=== PATIENT | male | born 1990 | race African-American/Black ===

== ENCOUNTER 2017-01-23 08:38 | Inpatient (IN) | payer OTHER ==
[2017-01-23] MEDS ORDERED: RX INFO: IV CONTRAST WAS GIVEN 1 EACH MISC MISCELLANE PRN (09:13)
[2017-01-23 09:37] LABS: Basophils % (A) 0 %; CHCM 31.5; Eosinophils # (A) 0.2 k/uL (0-0.7); Eosinophils % (A) 1 %; HCT 43.2 % (39.0-53.0); HDW 2.32; HGB 13.6 gm/dL (13.0-17.5); Luc % (Auto) 1; Lymphocytes # (A) 2.3 k/uL (1.0-4.8); Lymphocytes % (A) 15 %; MCHC 31.4 g/dL (31.0-37.0); Mean Platelet Volume 6.4; Monocytes % (A) 6 %; Neutrophils # (A) 11.5 k/uL (1.3-7.7); Neutrophils % (A) 76 %; RBC 5.21 m/uL (4.30-5.90); RDW 14.1 % (11.5-15.5); WBC 15.1 k/uL (3.8-10.6); WBC (Perox) 14.72
--- NOTE | 2017-01-23 09:40 | ED ---
General Adult HPI - General Source: patient, RN notes reviewed Mode of arrival: wheelchair Limitations: no limitations <Salvatore Gaston - Last Filed: 01/23/17 11:18> <Apolinar Kruse - Last Filed: 01/23/17 11:23> - General Chief complaint: Back Pain/Injury Stated complaint: rectal pain after lifting heavy object Time Seen by Provider: 01/23/17 09:09 - History of Present Illness Initial comments: This a 26-year-old male presents emergency Department chief complaint rectal pain. Patient states this started over the last 1-2 days. Patient states that he has not had a bowel movement because it is painful. He states that it feels some bulging and a lump in his perirectal region. Patient states never had any like this in the past no history of abscesses or infections. Denies any rectal bleeding. Patient states did notice some pain in that region with lifting but states it was not correlated. Patient denies any bowel bladder incontinence or retention. Denies any abdominal pain no nausea vomiting. (Salvatore Gaston) - Related Data Home Medications Medication Instructions Recorded Confirmed No Known Home Medications [No 01/23/17 01/23/17 Known Home Medications] Allergies Allergy/AdvReac Type Severity Reaction Status Date / Time No Known Allergies Allergy Verified 01/23/17 10:30 Review of Systems ROS Other: All systems not noted in ROS Statement are negative. <Salvatore Gaston - Last Filed: 01/23/17 11:18> ROS Other: All systems not noted in ROS Statement are negative. <Apolinar Kruse - Last Filed: 01/23/17 11:23> ROS Statement: Those systems with pertinent positive or pertinent negative responses have been documented in the HPI. Past Medical History Past Medical History: No Reported History History of Any Multi-Drug Resistant Organisms: None Reported Past Surgical History: No Surgical Hx Reported Past Psychological History: No Psychological Hx Reported Smoking Status: Current every day smoker Past Alcohol Use History: Occasional, Rare Past Drug Use History: Marijuana <Salvatore Gaston - Last Filed: 01/23/17 11:18> General Exam Limitations: no limitations General appearance: alert, in no apparent distress Neck exam: Present: normal inspection. Absent: tenderness, meningismus, lymphadenopathy Respiratory exam: Present: normal lung sounds bilaterally. Absent: respiratory distress, wheezes, rales, rhonchi, stridor Cardiovascular Exam: Present: regular rate, normal rhythm, normal heart sounds. Absent: systolic murmur, diastolic murmur, rubs, gallop, clicks Rectal exam: Present: mass (Appears to be perirectal abscess) <Salvatore Gaston - Last Filed: 01/23/17 11:18> Medical Decision Making - Lab Data Result diagrams: 01/23/17 09:23 01/23/17 09:23 <Salvatore Gaston - Last Filed: 01/23/17 11:18> - Lab Data Result diagrams: 01/23/17 09:23 01/23/17 09:23 <Apolinar Kruse - Last Filed: 01/23/17 11:23> - Medical Decision Making Personal [id number] evaluation patient did discuss findings with him. I did examine the patient does demonstrate a perianal abscess with localized tenderness to palpation. I did discuss the case with Dr. Margarito Kruse who will come in to see the patient. The patient will likely go to the operating room for I&D of the abscess. I did alert the anesthesia department (Apolinar Kruse) - Lab Data Lab Results 01/23/17 01/23/17 Range/Units 09:23 09:23 WBC 15.1 H (3.8-10.6) k/uL RBC 5.21 (4.30-5.90) m/uL Hgb 13.6 (13.0-17.5) gm/dL Hct 43.2 (39.0-53.0) % MCV 83.0 (80.0-100.0) fL MCH 26.0 (25.0-35.0) pg MCHC 31.4 (31.0-37.0) g/dL RDW 14.1 (11.5-15.5) % Plt Count 165 (150-450) k/uL Neutrophils % 76 % Lymphocytes % 15 % Monocytes % 6 % Eosinophils % 1 % Basophils % 0 % Neutrophils # 11.5 H (1.3-7.7) k/uL Lymphocytes # 2.3 (1.0-4.8) k/uL Monocytes # 1.0 (0-1.0) k/uL Eosinophils # 0.2 (0-0.7) k/uL Basophils # 0.0 (0-0.2) k/uL Sodium 141 (137-145) mmol/L Potassium 4.7 (3.5-5.1) mmol/L Chloride 105 (98-107) mmol/L Carbon Dioxide 27 (22-30) mmol/L Anion Gap 9 mmol/L BUN 9 (9-20) mg/dL Creatinine 0.93 (0.66-1.25) mg/dL Est GFR (MDRD) Af Amer >60 (>60 ml/min/1.73 sqM) Est GFR (MDRD) Non-Af >60 (>60 ml/min/1.73 sqM) Glucose 97 (74-99) mg/dL Calcium 9.5 (8.4-10.2) mg/dL Disposition <Salvatore Gaston - Last Filed: 01/23/17 11:18> <Apolinar Kruse - Last Filed: 01/23/17 11:23> Clinical Impression: Perirectal abscess Disposition: ADMITTED IP TO THIS HOSP Condition: Stable Referrals: None,Stated [Primary Care Provider] - 1-2 days
[2017-01-23 09:47] LABS: Anion Gap 9 mmol/L; Blood Urea Nitrogen 9 mg/dL (9-20); Calcium 9.5 mg/dL (8.4-10.2); Carbon Dioxide 27 mmol/L (22-30); Chloride 105 mmol/L (98-107); Glucose 97 mg/dL (74-99); Non-African American GFR(MDRD) >60 (>60 ml/min/1.73 sqM); Potassium 4.7 mmol/L (3.5-5.1); Sodium 141 mmol/L (137-145)
--- NOTE | 2017-01-23 10:43 | CT ---
EXAMINATION TYPE: CT pelvis w con DATE OF EXAM: 01/23/2017 REFERENCE: NONE HISTORY: Perirectal abscess HISTORY: Rectal pain CT DLP: 415.8 mGy Automated exposure control for dose reduction was used. TECHNIQUE: Helical acquisition through the abdomen and pelvis was obtained following the oral ingesti on of without Oral Contrast and following intravenous administration of 100 mL of Omnipaque 300. The data was reformatted in axial, coronal and sagittal projections. FINDINGS: Visualized abdominal viscera are unremarkable. The bladder wall appears slightly thickened. This may be due to lack of distention. Visualized large and small bowel loops are unremarkable. There is a 1.8 x 1.2 x 2.5 cm low attenuating lesion just to the left of the midline in the ischiorec bhargavi space. This likely represents an abscess. There is surrounding inflammation. Pelvic musculature appears normal. IMPRESSION: 2.5 CM PERIRECTAL ABSCESS ON THE LEFT.
[2017-01-23] MEDS ORDERED: HYDROmorphone 1 MG/ML 1 ML SYRINGE IVP STA ×2 (10:47→11:14)
[2017-01-23] MEDS ORDERED: ONDANSETRON 4 MG/2 ML VIAL IVP STA (10:47)
[2017-01-23] MEDS ORDERED: NALOXONE 0.4 MG/ML 1 ML VIAL IV PRN ×2 (11:19→13:35)
[2017-01-23] MEDS ORDERED: PIPERACILLIN-TAZOBACTAM 3.375 GM in DEXTROSE/WATER 1 50ML.BAG IVPB STA (12:00)
--- NOTE | 2017-01-23 12:06 | P.GSHP ---
History of Present Illness H&P Date: 01/23/17 Patient is a 26-year-old black male who presents with a complaint of pain in his perianal area. He states he was lifting a heavy box and had some straining and then developed pain in this region. The patient states that it has been persistent for the past several days. Additionally he states that he has had a fever although he did not take his temperature and chills. The patient denies any blood in his last bowel movement was 3 days ago secondary to the fact that is painful to have a bowel movement. Patient did have a computed tomography scan performed which reveals a 1.8 x 2.5 cm low-attenuation lesion just to the left of the midline and the initial rectal space. This is felt to represent an abscess. Patient's white blood cell count is 15.1. Past surgical history: Umbilical hernia repair Past medical history: Negative Medications: Negative ALLERGIES: Negative Social history: Smokes 1 pack every 2 days Alcohol negative Uses marijuana occasionally Does not use other recreational drugs Review of systems: HEENT: Negative Lungs: Negative Heart: Negative GI: As above : Negative - Constitutional Constitutional: Reports as per HPI, Reports chills, Reports fever - Cardiovascular Cardiovascular: Reports as per HPI - Respiratory Respiratory: Reports as per HPI - Gastrointestinal Comment: Perianal pain/swelling Gastrointestinal: Reports as per HPI Past Medical History Past Medical History: No Reported History History of Any Multi-Drug Resistant Organisms: None Reported Past Surgical History: No Surgical Hx Reported Past Psychological History: No Psychological Hx Reported Smoking Status: Current every day smoker Past Alcohol Use History: Occasional, Rare Past Drug Use History: Marijuana Medications and Allergies Home Medications Medication Instructions Recorded Confirmed Type No Known Home Medications [No 01/23/17 01/23/17 History Known Home Medications] Allergies Allergy/AdvReac Type Severity Reaction Status Date / Time No Known Allergies Allergy Verified 01/23/17 10:30 Surgical - Exam Vital Signs Temp Pulse Resp BP Pulse Ox 97.0 F L 85 20 125/83 100 01/23/17 08:43 01/23/17 08:43 01/23/17 08:43 01/23/17 08:43 01/23/17 08:43 - General Multiple tattoos well developed, well nourished, moderate distress - Eyes normal ocular movement - ENT normal pinna, normal nares, no hearing loss - Neck no masses, trachea midline, no lymphadectomy, no venous distension - Respiratory normal expansion, normal respiratory effort, clear to auscultation - Cardiovascular Rhythm: regular Heart Sounds: normal: S1, S2 - Abdomen Abdomen: soft, non tender, bowel sounds - Rectum Large swelling posterior midline. Tender Attempted rectal exam a very difficult secondary to tenderness Results - Labs 01/23/17 09:23 01/23/17 09:23 Abnormal Lab Results - Last 24 Hours (Table) 01/23/17 Range/Units 09:23 WBC 15.1 H (3.8-10.6) k/uL Neutrophils # 11.5 H (1.3-7.7) k/uL Diabetes panel 01/23/17 Range/Units 09:23 Sodium 141 (137-145) mmol/L Potassium 4.7 (3.5-5.1) mmol/L Chloride 105 (98-107) mmol/L Carbon Dioxide 27 (22-30) mmol/L BUN 9 (9-20) mg/dL Creatinine 0.93 (0.66-1.25) mg/dL Glucose 97 (74-99) mg/dL Calcium 9.5 (8.4-10.2) mg/dL Calcium panel 01/23/17 Range/Units 09:23 Calcium 9.5 (8.4-10.2) mg/dL Pituitary panel 01/23/17 Range/Units 09:23 Sodium 141 (137-145) mmol/L Potassium 4.7 (3.5-5.1) mmol/L Chloride 105 (98-107) mmol/L Carbon Dioxide 27 (22-30) mmol/L BUN 9 (9-20) mg/dL Creatinine 0.93 (0.66-1.25) mg/dL Glucose 97 (74-99) mg/dL Calcium 9.5 (8.4-10.2) mg/dL Adrenal panel 01/23/17 Range/Units 09:23 Sodium 141 (137-145) mmol/L Potassium 4.7 (3.5-5.1) mmol/L Chloride 105 (98-107) mmol/L Carbon Dioxide 27 (22-30) mmol/L BUN 9 (9-20) mg/dL Creatinine 0.93 (0.66-1.25) mg/dL Glucose 97 (74-99) mg/dL Calcium 9.5 (8.4-10.2) mg/dL - Imaging CT scan - abdomen: report reviewed, image reviewed CT scan - pelvis: report reviewed, image reviewed Assessment and Plan Plan: Impression/plan: 1. 26-year-old black male probable perianal abscess Plan: 1. Exam under anesthesia 2. I&D possible abscess 3. IV antibiotics
[2017-01-23] MEDS ORDERED: HEPARIN SODIUM,PORCINE 5,000 UNIT/ML 1 ML VIAL SQ ONE (12:08)
[2017-01-23] MEDS ORDERED: LACTATED RINGERS 1,000 ML IV ONE (12:48)
[2017-01-23] MEDS ORDERED: fentaNYL (PF) 50 MCG/ML 2 ML AMP ONE (12:48)
[2017-01-23] MEDS ORDERED: MIDAZOLAM 2 MG/2 ML VIAL ONE (12:48)
[2017-01-23] MEDS ORDERED: SODIUM CHLORIDE 0.9% 50 ML with ceFAZolin 2,000 MG IV ONE ×2 (13:09)
[2017-01-23] MEDS ORDERED: ONDANSETRON 4 MG/2 ML VIAL IVP PRN (13:35)
[2017-01-23] MEDS ORDERED: DOCUSATE 100 MG CAP PO PRN (13:35)
--- NOTE | 2017-01-23 13:35 | P.OP ---
Date of Procedure: 01/23/17 Preoperative Diagnosis: Posterior perianal abscess Postoperative Diagnosis: Same Procedure(s) Performed: Incision and drainage posterior perianal abscess, exam under anesthesia Implants: Anesthesia: spinal Surgeon: Génesis Gr Estimated Blood Loss (ml): 5 IV fluids (ml): 200 Pathology: other (Cultures obtained, no tissue sent) Condition: stable Disposition: PACU Indications for Procedure: Perianal abscess, painful Operative Findings: 6 cm x 3 cm perianal abscess Description of Procedure: Patient was taken to the operating suite and following spinal anesthesia placed in the jackknife position. The patient's perianal area was prepped and draped in a sterile fashion. The patient was noted to have a large posterior perianal abscess. This was measured at 6 cm x 3 cm. Digital rectal examination was performed and did not reveal any palpable induration extending into the rectal area. Additionally examination with a rectal retractor was performed and did not reveal any extension into the perianal/rectal mucosa. Patient was noted to have right and left anterior lateral hemorrhoidal complexes. Incision and drainage over the area of the abscess was performed. Purulent fluid was drained, approximately 10 mL. Cultures were obtained. The abscess was quite deep extending near the sacrum. The lesion was approximately 6 cm x 3 cm in size. Following this the wound was well irrigated. The wound was then packed using an iodoform gauze. The patient tolerated the procedure in stable condition. All instrument and sponge counts were correct at the end of the case.
[2017-01-23] MEDS: DEXTROSE 5%-0.45% NACL 1,000 ML IV SCH ×2 (15:10→22:39)
[2017-01-23] MEDS ORDERED: PIPERACILLIN-TAZOBACTAM 3.375 GM in DEXTROSE/WATER 1 50ML.BAG IVPB SCH (16:00)
[2017-01-23 16:05] VITALS: BMI 21.7
[2017-01-23] MEDS: HEPARIN SODIUM,PORCINE 5,000 UNIT/ML 1 ML VIAL SQ SCH ×2 (16:09→23:21)
[2017-01-23] MEDS: PIPERACILLIN-TAZOBACTAM 3.375 GM in DEXTROSE/WATER 1 50ML.BAG IVPB SCH ×2 (17:26→23:21)
[2017-01-23] MEDS: FAMOTIDINE 20 MG TAB PO SCH (20:18)
[2017-01-23] MEDS: HYDROcodone/APAP 5-325MG 1 EACH TAB PO PRN (20:18)
[2017-01-23] MEDS: HYDROmorphone 1 MG/ML 1 ML SYRINGE IV PRN (22:38)
[2017-01-24] MEDS ORDERED: PIPERACILLIN-TAZOBACTAM 3.375 GM in DEXTROSE/WATER 1 50ML.BAG IVPB SCH
[2017-01-24] MEDS: HYDROmorphone 1 MG/ML 1 ML SYRINGE IV PRN ×4 (01:09→22:11)
[2017-01-24 07:08] LABS: Basophils % (A) 0 %; CH 25.6; CHCM 30.9; Eosinophils # (A) 0.2 k/uL (0-0.7); Eosinophils % (A) 2 %; HCT 38.5 % (39.0-53.0); HDW 2.41; HGB 12.6 gm/dL (13.0-17.5); Hypochromasia Slight; Luc # (Auto) 0.31; Luc % (Auto) 3; Lymphocytes # (A) 2.6 k/uL (1.0-4.8); Lymphocytes % (A) 24 %; MCH 27.2 pg (25.0-35.0); MCHC 32.7 g/dL (31.0-37.0); MCV 83.2 fL (80.0-100.0); Mean Platelet Volume 7.1; Monocytes # (A) 0.8 k/uL (0-1.0); Monocytes % (A) 7 %; Neutrophils # (A) 7.1 k/uL (1.3-7.7); Neutrophils % (A) 64 %; RBC 4.64 m/uL (4.30-5.90); WBC 11.1 k/uL (3.8-10.6)
[2017-01-24] MEDS: HEPARIN SODIUM,PORCINE 5,000 UNIT/ML 1 ML VIAL SQ SCH ×3 (08:33→23:11)
[2017-01-24] MEDS: PIPERACILLIN-TAZOBACTAM 3.375 GM in DEXTROSE/WATER 1 50ML.BAG IVPB SCH ×2 (08:33→17:13)
[2017-01-24] MEDS: FAMOTIDINE 20 MG TAB PO SCH ×2 (08:33→20:55)
[2017-01-24] MEDS: NICOTINE 21MG/24HR PATCH TRANSDERM SCH (09:47)
[2017-01-24] MEDS: DEXTROSE 5%-0.45% NACL 1,000 ML IV SCH ×2 (09:47→19:28)
--- NOTE | 2017-01-24 10:29 | P.PN ---
Subjective Patient is postop day #1 incision and drainage of perianal abscess. We are awaiting cultures. Patient is complaining of some persistent pain at the site. Objective - Vital Signs Vital signs: Vital Signs Temp 97.6 F 01/24/17 07:34 Pulse 64 01/24/17 07:34 Resp 16 01/24/17 07:34 BP 111/73 01/24/17 07:34 Pulse Ox 100 01/24/17 07:34 Intake & Output 01/23/17 01/24/17 01/24/17 18:59 06:59 18:59 Intake Total 700 1200 120 Output Total 5 780 600 Balance 695 420 -480 Weight 72.575 kg Intake: IV 700 1200 Dextrose 5%-0.45% NaCl 1, 1200 000 ml @ 100 mls/hr IV . Q10H [facility] Rx#:[id number] Oral 120 Output: Urine 780 600 Estimated Blood Loss 5 Other: Voiding Method Urinal Urinal Toilet # Voids 1 - Constitutional General appearance: Present: thin - Respiratory Respiratory: bilateral: CTA - Cardiovascular Rhythm: regular Heart sounds: normal: S1, S2 - Gastrointestinal Gastrointestinal Comment(s): Incision area clean and dry/packing to be changed today General gastrointestinal: Present: normal bowel sounds, soft - Psychiatric Psychiatric: Present: A&O x's 3, appropriate affect, intact judgment & insight - Labs CBC & Chem 7: 01/24/17 06:55 01/23/17 09:23 Labs: Abnormal Lab Results - Last 24 Hours (Table) 01/24/17 Range/Units 06:55 WBC 11.1 H (3.8-10.6) k/uL Hgb 12.6 L (13.0-17.5) gm/dL Hct 38.5 L (39.0-53.0) % Microbiology - Last 24 Hours (Table) 01/23/17 13:14 Gram Stain - Preliminary Perianal Wound Culture - Preliminary 01/23/17 13:14 Anaerobic Culture - Preliminary Perianal Assessment and Plan Plan: Impression/plan: 1. 26-year-old black male postop day #1 I&D perianal abscess Plan: 1. Continue IV antibiotic therapy/await cultures 2. Continue pain control 3. Await ID consult
--- NOTE | 2017-01-24 16:05 | CONS ---
DATE OF CONSULTATION: 01/24/2017 REASON FOR CONSULTATION: Perirectal abscess. HISTORY OF PRESENT ILLNESS: The patient is a 26-year-old male who did have a history of recurrent ( ) infection especially in the ( ) area that has previously been drained. However, the patient says he was not told the type of infection he was having. Patient presented to the ER with chief complaints of pain to the perirectal area that has been going on for about 1 to 2 days. The patient says he noticed to have a bulging lump in the perirectal region. There is no history of any drainage from it. The patient did have pelvis CT done by the ER physician which did show 2.5 cm perirectal abscess on the left. Patient subsequently has been evaluated by Dr. Dejah Peters from surgery and has been taken to the OR. The patient is status post incision and drainage of the posterior perianal abscess. Culture has been sent, has been treated with Zosyn. ID was consulted for further recommendation regarding antibiotic therapy. Patient currently is afebrile. The patient denies significant chest pain or shortness of cough. No abdominal pain. No diarrhea. No burning or frequency of urine and denies any other source currently. REVIEW OF SYSTEMS: CONSTITUTIONAL: Positive for weakness. No high-grade fever. EYES: No complaint. ENT: No complaint. RESPIRATORY: No complaint. CARDIOVASCULAR: No complaint. ENT: No complaints. GENITOURINARY: No complaint. GASTROINTESTINAL: as per HPI. MUSCULOSKELETAL: No complaint. Integumentary: As per history of present illness. PSYCHOLOGICAL: No complaint. ENDOCRINE: No complaint. NEUROLOGIC: No complaint. Past medical history is ( ) infection especially to the axilla area. Past surgical history is drainage of the axillary abscess. SOCIAL HISTORY: The patient is currently an every day smoker, does drink and admitted to marijuana use. FAMILY HISTORY: No pertinent findings were noticed. ALLERGIES: No known drug allergies. Medications currently include the patient is on: 1. Amenia. 2. Colace. 3. Pepcid. 4. Heparin. 5. Dilaudid. 6. Narcan. 7. Nicotine patch. 8. Zofran. 9. Piptazobactam. On examination, his blood pressure is 111/73 with a pulse of 84, temperature 97.6, he is 100% on room air. General description is a young male, lying in bed in no distress. No tachypnea or accessory muscle of respiration use. HEENT examination shows no pallor or scleral icterus. Oral mucous membranes is moist. NECK: Trachea central. There is no thyromegaly. LUNGS: Unlabored breathing. Clear to auscultation anteriorly. No wheeze or crackle. HEART: S1, S2. Regular rate and rhythm. ABDOMEN: Soft. No tenderness. No guarding or rigidity. EXTREMITIES: No edema of the feet. Examination of the perirectal area did show left perirectal currently being packed. No significant drainage was noticed. Slight induration but no redness. Slightly painful to touch. NEUROLOGICAL: The patient is awake, alert, oriented x3. Mood and affect normal. LABS: Hemoglobin is 12.6, white count 11.1 from yesterday 15.1, BUN of 9, creatinine 0.93. Wound cultures currently pending. The Gram stain did show gram-positive cocci and a few gram-negative bacilli. DIAGNOSTIC IMPRESSION AND PLAN: Patient with left perirectal abscess in a patient who did give a history of axillary abscess in the past that has been drained with concern for possible recurrence ( ) infection, underlying streptococcal infection cannot be entirely excluded though the more common pathogen in the perirectal area will be gram-negative both aerobes and anaerobes. PLAN: 1. Continue the patient on Zosyn, however, add Vancomycin while waiting for the culture to finalize. 2. Depending upon the clinical response and cultures to determine discharge antibiotic. Thank you for this consultation. We will follow this patient along with you.
[2017-01-24] MEDS: HYDROcodone/APAP 5-325MG 1 EACH TAB PO PRN (20:55)
[2017-01-24] MEDS ORDERED: IV VANCOMYCIN PER PHARMACY 1 EACH MISC MISCELLANE PRN (22:13)
[2017-01-24] MEDS: VANCOMYCIN 1,250 MG in SODIUM CHLORIDE 0.9% 250 ML IVPB SCH (23:04)
[2017-01-25] MEDS: HYDROmorphone 1 MG/ML 1 ML SYRINGE IV PRN ×3 (01:35→20:50)
[2017-01-25] MEDS: PIPERACILLIN-TAZOBACTAM 3.375 GM in DEXTROSE/WATER 1 50ML.BAG IVPB SCH ×4 (01:37→20:44)
[2017-01-25] MEDS: HYDROcodone/APAP 5-325MG 1 EACH TAB PO PRN (04:24)
[2017-01-25] MEDS: VANCOMYCIN 1,250 MG in SODIUM CHLORIDE 0.9% 250 ML IVPB SCH ×4 (06:05→20:40)
[2017-01-25] MEDS: DEXTROSE 5%-0.45% NACL 1,000 ML IV SCH ×2 (06:10→18:12)
[2017-01-25] MEDS ORDERED: ALPRAZolam 0.5 MG TAB PO PRN (08:59)
--- NOTE | 2017-01-25 09:10 | P.PN ---
Subjective 76-year-old male patient being seen and examined this morning. Patient states feels overly anxious wants to leave cannot stay here has things to do at home. Patient states he lives with his and a 3-month-old child he needs to get home . Patient is postop done on January 23 incision and drainage of a large posterior perianal abscess. Measured 6 cm x 3. Approximately 10 mL's of purulent fluid was drained. Cultures were obtained. The abscess was noted to be quite deep extending near the sacrum. Patients being followed by infectious disease. Dr hagan anaerobic wound cultures currently pending currently patient is on IV vancomycin and Zosyn the white count on the was 11.1 Did spend greater than 15 minutes at the bedside discussing the plan of care with the patient the rationale for not leaving AGAINST MEDICAL ADVICE. Patient did agree to stay. Await for his to come into the hospital to educate on the wound care with packing involving the. Peritoneal abscess patient states he's new has moved up here from [place] has no physician Objective - Vital Signs Vital signs: Vital Signs Temp 98.0 F 01/25/17 07:00 Pulse 60 01/25/17 07:00 Resp 16 01/25/17 07:00 BP 111/59 01/25/17 07:00 Pulse Ox 100 01/25/17 07:00 Intake & Output 01/24/17 01/25/17 01/25/17 18:59 06:59 18:59 Intake Total 120 1400 Output Total 600 Balance -480 1400 Intake: IV 1200 Dextrose 5%-0.45% NaCl 1, 1200 000 ml @ 100 mls/hr IV . Q10H [facility] Rx#:[id number] Oral 120 200 Output: Urine 600 Other: Voiding Method Toilet Toilet # Voids 2 1 - Exam GENERAL APPEARANCE: 26-year-old male patient is alert, oriented, in no acute distress. VITAL SIGNS: Reviewed HEENT: Head is normocephalic and atraumatic. Pupils are equal and reactive. The nares are patent. Oropharynx is clear without lesions. NECK: Supple without lymphadenopathy. Traches midline. HEART: S1, S2. Regular rate and rhythm. Denying chest pain LUNGS: No crackles or wheezes are heard. Adequate air movement on room air no cough noted ABDOMEN: Soft, nontender, nondistended with good bowel sounds. No peritoneal signs. No palpable organomegaly or masses. EXTREMITIES: Normal skin color and turgor. No cyanosis, rash, ulceration, clubbing or edema. Radial pedal pulses are 2/4 bilaterally. NEUROLOGICAL: No focal deficits. Strength and sensation are grossly intact. Peritoneal area left perirectal incision no packing in place nursing reports packing fell out there is no significant drainage slight tenderness to touch no odor noted no swelling noted around the incision site - Labs CBC & Chem 7: 01/24/17 06:55 01/26/17 04:31 Labs: Microbiology - Last 24 Hours (Table) 01/23/17 13:14 Gram Stain - Preliminary Perianal Wound Culture - Preliminary Assessment and Plan Plan: Impression prior history of abscess axillary area per patient report Present on admission peritoneal pain onset 2 days prior suspect due to perianal abscess Postop January 23 2017 incision and drainage of a posterior perianal abscess measuring 6 cm x 3 with approximately 10 mL appearing fluid drained Current every day smoker Anxiety disorder nonspecified Present on admission leukocytosis low-grade temp suspect due to early sepsis likely related to perianal abscess Plan Wound care packing iodoform to the affected site daily Infectious disease recommendations antibiotics defer to Follow-up on wound cultures pending Pain control Xanax as ordered when necessary for anxiety Patient's been counseled about stop smoking cigarettes The above impression and plan of care have been discussed and directed by signing physician. Shazia Santana nurse practitioner acting as scribe for signing physician.
[2017-01-25] MEDS: FAMOTIDINE 20 MG TAB PO SCH ×2 (09:41→20:53)
[2017-01-25] MEDS: HEPARIN SODIUM,PORCINE 5,000 UNIT/ML 1 ML VIAL SQ SCH ×2 (09:41→19:25)
[2017-01-25] MEDS: NICOTINE 21MG/24HR PATCH TRANSDERM SCH (09:41)
[2017-01-26] MEDS: VANCOMYCIN 1,250 MG in SODIUM CHLORIDE 0.9% 250 ML IVPB SCH ×2 (00:49→07:18)
[2017-01-26] MEDS: HEPARIN SODIUM,PORCINE 5,000 UNIT/ML 1 ML VIAL SQ SCH ×2 (00:49→08:55)
[2017-01-26] MEDS: PIPERACILLIN-TAZOBACTAM 3.375 GM in DEXTROSE/WATER 1 50ML.BAG IVPB SCH ×2 (03:05→08:00)
[2017-01-26] MEDS: DEXTROSE 5%-0.45% NACL 1,000 ML IV SCH ×2 (03:05→16:57)
[2017-01-26] MEDS: HYDROmorphone 1 MG/ML 1 ML SYRINGE IV PRN (03:20)
[2017-01-26] MEDS ORDERED: VANCOMYCIN TROUGH DUE 1 EACH MISC MISCELLANE ONE (05:00)
[2017-01-26 05:01] LABS: Anion Gap 10 mmol/L; Blood Urea Nitrogen 10 mg/dL (9-20); Calcium 9.1 mg/dL (8.4-10.2); Carbon Dioxide 23 mmol/L (22-30); Chloride 109 mmol/L (98-107); Glucose 95 mg/dL (74-99); Non-African American GFR(MDRD) >60 (>60 ml/min/1.73 sqM); Sodium 142 mmol/L (137-145)
[2017-01-26] MEDS: ACETAMINOPHEN TAB 325 MG TAB PO PRN ×2 (08:54→16:55)
[2017-01-26] MEDS: FAMOTIDINE 20 MG TAB PO SCH (08:55)
[2017-01-26] MEDS: NICOTINE 21MG/24HR PATCH TRANSDERM SCH (08:55)
[2017-01-26] MEDS ORDERED: PIPERACILLIN-TAZOBACTAM 3.375 GM in DEXTROSE/WATER 1 50ML.BAG IVPB SCH (12:00)
--- NOTE | 2017-01-26 13:02 | P.DS ---
Providers Date of admission: 01/24/17 10:16 Expected date of discharge: 01/26/17 Attending physician: Génesis Gr Consults: 01/23/17 13:40 Consult Physician Routine Consulting Provider: Delvin Siegel Consult Reason/Comments: perianal absecss Do you want consulting provider notified?: Yes Primary care physician: Stated None Hospital Course: Twice 6-year-old Stacie male presented on the day of admission to the emergency room with a chief complaint of developing pain in the perianal area. Patient stated the pain was persistent for the past several days. He stated that he felt like he had a fever but he did not actually take his temperature. Patient stated that he noted no blood in his last bowel movement which was 3 days ago. Patient stated that it was painful to have a bowel movement. felt that there was some bulging lump in the perirectal region left side Patient was admitted to the services of the attending. Patient did have a CAT scan of the abdomen it did show 1.8 x 2.5 cm lesion just to the left of the midline in the rectal space felt to be an abscess. White count 15.1. Patient stated that he has had a prior abscess in his axillary area he was concerned that he felt that he could be developing an abscess in the perianal area the patient elected to proceed with an incision and drainage of the large posterior perianal abscess left side . Patient is postop done on January 23 incision and drainage of a large posterior perianal abscess. Measured 6 cm x 3. Approximately 10 mL's of purulent fluid was drained. Cultures were obtained. The abscess was noted to be quite deep extending near the sacrum. Patients being followed by infectious disease. Dr hagan anaerobic wound cultures currently pending currently patient is on IV vancomycin and Zosyn the white count on the was 11.1 Nursing did review with the patient's how to pack the left on the day of discharge patient was felt to be hemodynamically stable and appropriate to proceed with a discharge to home Impression discharge diagnosis Computed tomography scan pelvis with contrast 2.5 cm perirectal abscess on the left prior history of abscess axillary area per patient report Present on admission peritoneal pain onset 2 days prior suspect due to perianal abscess Postop January 23 2017 incision and drainage of a posterior left perianal abscess measuring 6 cm x 3 with approximately 10 mL appearing fluid drained Current every day smoker Anxiety disorder nonspecified Present on admission leukocytosis low-grade temp suspect due to early sepsis likely related to perianal abscess The above impression and plan of care have been discussed and directed by signing physician. Shazia Santana nurse practitioner acting as scribe for signing physician. Patient Condition at Discharge: Stable Plan - Discharge Summary New Discharge Prescriptions: New Sulfamethox-Tmp 800-160Mg [Bactrim DS 800-160 mg] 1 tab PO Q12HR #14 tab Amoxic-Pot Clav 875-125Mg [Augmentin 875-125] 1 tab PO Q12HR #14 tablet Discharge Medication List Amoxic-Pot Clav 875-125Mg [Augmentin 875-125] 1 tab PO Q12HR #14 tablet [Rx] Sulfamethox-Tmp 800-160Mg [Bactrim DS 800-160 mg] 1 tab PO Q12HR #14 tab [Rx] Follow up Appointment(s)/Referral(s): [facility], [NON-STAFF] - 1 Week None,Stated [Primary Care Provider] - 1-2 days Luisa Hagan MD [STAFF PHYSICIAN] - 02/04/17 9:30 am Génesis Gr MD [STAFF PHYSICIAN] - 1 Week Patient Instructions/Handouts: Abscess Incision and Drainage (DC) Care Plan Goals (MU): CHANGE DRESSING/IODOFORM 1 INCH PACKING DAILY NO TUB BATHS, SOAKING, HOT TUBS OR SWIMMING SHOWER DAILY BEFORE DRESSING CHANGE REGULAR DIET TOLERATED Discharge Disposition: HOME SELF-CARE
[2017-01-26 13:52] VITALS: BP 108/52; PULSE 75; RESP 17; TEMP 97
[2017-01-26] MEDS ORDERED: VANCOMYCIN 1,250 MG in SODIUM CHLORIDE 0.9% 250 ML IVPB SCH (16:00)
--- NOTE | 2017-01-27 18:14 | PN ---
DATE OF SERVICE: 01/26/2017 REASON FOR FOLLOWUP: Left perirectal abscess. INTERVAL HISTORY: The patient is afebrile. He is breathing comfortably. Overall pain to the perirectal area has improved. Denies significant chest pain, shortness of breath or cough. No diarrhea. On examination, blood pressure is 108/52 with a pulse of 75, temperature 97. He is 97% on room air. General description is a middle-aged male lying in bed in no distress. RESPIRATORY SYSTEM: Unlabored breathing. Clear to auscultation anteriorly. HEART: S1, S2. Regular rate and rhythm. ABDOMEN: Soft. No tenderness. LEFT PERIRECTAL AREA: Overall swelling and redness have improved. LABS: BUN 10, creatinine 1.00. Unfortunately the cultures are still pending. DIAGNOSTIC IMPRESSION AND PLAN: Patient with a left perirectal abscess, status post drainage. Cultures are so far negative for any resistant pathogen. Antibiotic will be adjusted to Augmentin and Bactrim for about a week with outpatient followup. Continue supportive care. IRLANDA
== END 2017-01-26 16:55 | disposition home health service (06) | DRG 872 ==
LOC: EC 08:38 → 3SUR 11:23 → EEVIPCON 01-24 10:16 → OBSVTOIN 01-24 10:16
PROVIDERS: ADMIT Surgery; ATTEND Surgery
PROC: 0D9P3ZZ Drainage of Rectum, Percutaneous Approach (ICD-10-PCS; principal; 2017-01-23 12:04)
DX: A41.9 Sepsis, unspecified organism (principal); K61.1 Rectal abscess; F12.90 Cannabis use, unspecified, uncomplicated; F41.9 Anxiety disorder, unspecified; F17.210 Nicotine dependence, cigarettes, uncomplicated; K64.9 Unspecified hemorrhoids; R53.1 Weakness; Z86.19 Personal history of other infectious and parasitic diseases; Z71.6 Tobacco abuse counseling
CPT/HCPCS: 36415; 72193; 80048; 80202; 85025; 87070; 87075; 87205; 96374; 96375; 99285